=== PATIENT | male | born 1930 | race Caucasian/White ===

== ENCOUNTER → 2016-12-06 | Outpatient (CLI) | payer OTHER ==
[~2016-12-06] VITALS: Ht 177.8 cm; Wt 76.5 kg
[~2016-12-06] MED LIST: ADULT LOW DOSE81 MG PO; ALEVE220 MG PO; ALLERGY RELIEF10 M3 PO; ASPIRIN EC81 M1 PO; ATORVASTATIN CA40 MG PO; BENADRYL25 MG PO; CALCITRATE200 MG PO; CALCIUM CITRAT1 EAC9 PO; CELEBREX 200 M200 M1 PO; CO Q-1010 MG PO; CRANBERRY PO; CRANBERRY500 M1 PO; FISH OIL 1,001000 M1 PO; GLUCOSAMINE S1000 M2 PO; GLUCOSAMINE SU500 MG PO; HYTRIN 5 M5 MG/1 CAP PO; LISINOPRIL20 MG PO; LOPRESSOR50 PO; METAMUCIL283 GM PO; MOBIC15 MG PO; MOBIC7.5 MG PO; MSM1000 M1 PO; MULTIVITAMINS PO; NEURONTIN 300300 M1 PO; PERCOCET 7.5-31 EACH PO; PERCOCET PO; RED YEAST RICE600 MG PO; SIMVASTATIN40 MG PO; VITAMIN D400 UNI1 PO; XANAX 0.5 MG0.5 M1 PO
--- NOTE | ~2016-12-06 | HPC ---
[facility] [place] [address] [address] [place] [address] PAIN MANAGEMENT CONSULTATION Name: HITESH MCCABE Room #: REG ROSANAPineda Wang#: [id number] Admission: 12/06/16 Attend Phys: Arnaldo Spivey DO Discharge: Date of : 32 Report #: [id number] THIS REPORT FOR: //name// CC: Karen Spivey The patient is a very pleasant 86-year-old gentleman, last seen in the pain clinic 07/09/2016. He has failed epidural injections, had fairly significant spinal stenosis with severe right neural foraminal stenosis at L3-L4, canal narrowed to 8.7 mm, with central stenosis at L2-L3 as well. The patient returns to the pain clinic today. He was seen for prolonged visit from [id number], greater than 50% of this 25-minute visit was spent counseling the patient. He did progress to have a decompressive laminectomy 11/14/2016, with Dr. Mciheal Bowers. Unfortunately, from the patient's perspective, it seems that symptoms continued to be problematic. He returns to pain clinic today noting pain is an 8/10 with walking, it is in the left low back, buttock, and anterior thigh, somewhat below the knee. He states pain interferes with function and seems to be getting worse with activity and time. He is now only 3 weeks out from surgery. He is very concerned that he feels he should have been "more functional" at this point. PHYSICAL EXAMINATION: Shows a pleasant 86-year-old gentleman, BMI is 24.2 kg/m2. Vital signs stable as noted in the EMR. Rises from chair using armrest. Gait is actually fairly tandem, though he has subjective pain in the right hip and leg. Objectively, lower extremity strength is 4/5 to hip flexion, lower extremity extension and flexion, dorsiflexion and plantar flexion. Right patellar reflex is absent, it is 1/4 on the left. Achilles reflex is 0-1/4 and symmetric. Straight leg raise is negative. Skin integument is intact. Well healed midline scar in the L3-L5 area. Unfortunately, I do not have any records from the surgery. ASSESSMENT: Symptomatic lumbar radiculopathy status post decompressive laminectomy with ongoing pain, right L3 distribution. RECOMMENDATION: Discussion with the patient today about therapeutic options. Strongly encouraged him to continue titrating up on his gabapentin, currently 1200 mg, Dr. Bowers has recommended to go up to 1800 mg a day, which I agree with. We will continue Percocet for breakthrough pain, he had some 7.5 mg tablets, I will decrease this to a 5/325 tablet, but enable him to take up to 4 tablets a day. Strongly encouraged him to continue stretching and walking daily. We will follow up in another 3 weeks for reevaluation. If pain continues to be problematic at that point, we may consider single epidural injection to help [address] [address] PAIN MANAGEMENT CONSULTATION Name: HITESH MCCABE Room #: REG ODETTE Wang#: [id number] Admission: 12/06/16 Attend Phys: Arnaldo Spivey DO Discharge: Date of : 32 Report #: [id number] with the scar tissue shrinkage and to decrease inflammation in the right L3 nerve root. (Likely L3-L4 transforaminal epidural injection)?). Again, location of the injection will depending on surgical report. If we did not get adequate relief following the procedure, we will consider moving forward with further radiographic evaluation, MRI with and without contrast. The patient was discharged in good and stable condition after a prolonged visit today, greater than 50% of time spent counseling the patient, encourage him to continue with activity, assuring him that there does not appear to be any terribly concerning symptoms, no bowel or bladder continence changes, no specific loss of strength, and no myelopathic symptoms. <ELECTRONICALLY SIGNED> By: Arnaldo Spivey DO 12/07/16 0704 1523 2139 Arnaldo Spivey DO /nt
[2016-12-06 13:25] VITALS: BP 132/69
== END ==
LOC: PAIN 07:10
DX: M54.16 Radiculopathy, lumbar region (principal); M48.06 Spinal stenosis, lumbar region; M96.1 Postlaminectomy syndrome, not elsewhere classified; Z87.891 Personal history of nicotine dependence

== ENCOUNTER → 2016-12-27 | Outpatient (CLI) | payer OTHER ==
[~2016-12-27] VITALS: Ht 177.8 cm; Wt 81.2 kg
[~2016-12-27] MED LIST changes: +NEUROCET PO
--- NOTE | ~2016-12-27 | HPC ---
[facility] [place] [address] [place] [address] PAIN MANAGEMENT CONSULTATION Name: HTIESH MCCABE Room #: REG ODETTE Wang#: [id number] Admission: 12/27/16 Attend Phys: Arnaldo Spivey DO Discharge: Date of : 32 Report #: [id number] THIS REPORT FOR: //name// CC: Karen Spivey The patient is a very pleasant 86-year-old gentleman, prior seen in the pain clinic 12/06/2016. The patient had progressed to have a decompressive laminectomy (at [facility]) 11/14/2016, Dr. Micheal Bowers. Unfortunately, from the patient's perspective this did not seem to help with his symptoms. At last visit 12/06/2016, talked about therapeutic options. Dr. Bowers had started him on gabapentin with a goal of titrating up to 1800 mg a day. I continued him on some Percocet, but weaned down from 7.5 to 5/325, limiting 4 a day. I asked to see him back today. He returns to pain clinic, we had a prolonged visit, he was seen from 13:15-13:45. Greater than 50% of this 30-minute visit was spent counseling the patient. He is frustrated that pain continues to be problematic. He rates his pain 9/10 and states it considerably interferes with ambulatory function. He has pain if he stands or walks. He states in the kitchen, he can only work for 2-3 minutes before pain becomes problematic. He is also complaining of significant lower extremity edema, right greater than left leg. He thinks it is likely secondary to the gabapentin, I tend to concur. Pain primarily right low back, radiating around the iliac crest and gluteus medius into the anterior thigh. It appears to be somewhat of an L2-L3 distribution on the right side. Physical exam shows 86-year-old gentleman, BMI is 25.7 kilograms per meter squared. Blood pressure is modestly elevated 143/99, pulse 84, respirations 16. Rises from the chair using armrest. Gait is modestly antalgic. Lower extremity strength is objectively pretty symmetric, though right hip flexion strength is little diminished. Straight leg raise is negative. Patellar reflexes slightly diminished on the right. Today, we did review opiate consent to treat contract. The patient understands his right to responsibilities. Under this, I have agreed to continue opiate analgesic, though we want to try and lower the dose or convert to a long-acting opiate. Presently we will simply wean gabapentin. He has stopped because he has actually gone from six 300 mg tablets to four 300 mg tablets a day. I suggested that he drop 1 tablet every 2-3 days and he should be able to wean off in about a week. I have taken the liberty of writing for 100 Percocet 5/325 to take not more than 4 a day. I will see him back in 3 weeks for reevaluation. At that time, we may consider addition of a sodium channel membrane stabilizing agent if he feels that the pain got worse when he weaned [address] [address] PAIN MANAGEMENT CONSULTATION Name: HITESH MCCABE Room #: REG ODETTE Wang#: [id number] Admission: 12/27/16 Attend Phys: Arnaldo Spivey DO Discharge: Date of : 32 Report #: [id number] off the gabapentin. We will also evaluate lower extremity swelling at that time. I asked him to bring in his remaining pills in the jar for pill count. We will ensure that he is taking not more than 4 Percocet a day. Discharged in good stable condition after prolonged visit, greater than 25 minutes was spent mostly counseling the patient. <ELECTRONICALLY SIGNED> By: Arnaldo Spivey DO 12/28/16 0837 1541 2320 Arnaldo Spivey DO /nt
[2016-12-27 13:03] VITALS: BP 143/99
== END | disposition home or self-care (01) ==
LOC: PAIN 07:16
DX: R60.0 Localized edema (principal); M54.5 Low back pain

== ENCOUNTER → 2017-01-21 | Outpatient (CLI) | payer OTHER ==
[~2017-01-21] VITALS: Ht 177.8 cm; Wt 77.6 kg
[~2017-01-21] MED LIST changes: +LIDODERM 5%1 PATC1 TRANSDERM
--- NOTE | ~2017-01-21 | HPC ---
[facility] [place] [address] [place] [address] PAIN MANAGEMENT CONSULTATION Name: HITESH MCCABE Room #: REG ODETTE Wang#: [id number] Admission: 01/21/17 Attend Phys: Arnaldo Spivey DO Discharge: Date of : 32 Report #: [id number] THIS REPORT FOR: //name// CC: Karen Spivey DATE OF SERVICE: 01/21/2017 HISTORY OF PRESENT ILLNESS: The patient is an 86-year-old gentleman, prior seen in the pain clinic on 12/27/2016. He had a decompressive laminectomy on 11/14/2016. The patient's subjective feeling is that his pain has only gotten worse and has continually gotten worse since that surgery. Last visit, I tried to wean his Percocet from 7.5 to 5/325 limiting to 3-2 tabs per day. Gabapentin had prior been weaned secondary to significant pretibial edema. Returned to the pain clinic today. We had a prolonged visit from 13:16 to approximately 13:45. Greater than 50% of this 25+ minute visit was spent counseling the patient. His pain is primarily right gluteal anterior thigh to the perla. He notes a burning numb sensation. He takes Celebrex 100 mg a day, Percocet 5/325 four a day, gabapentin 300 mg b.i.d. with pain that he rates as 7-8 on a 0-10 visual analog scale, exacerbated with activity including walking, standing, gets some relief with rest. PHYSICAL EXAMINATION: Shows an 86-year-old gentleman, BMI is 24.5 kilograms per meter squared. Vital signs are stable as noted on the EMR. Rises from chair using armrest, modestly antalgic gait, slight decreased right hip flexion strength and lower extremity extension strength. Patellar reflex is modestly diminished on the right. Achilles reflexes are preserved. DIAGNOSTIC STUDIES: There are no recent diagnostic studies, prior MRI from May 2016 predated his surgery. Discussion with the patient today about the therapeutic options. RECOMMENDATIONS: 1. We will order MRI with and without contrast. 2. If they are surgically correctable pathology, we will refer back to Dr. Micheal Bowers; if not, we will consider a spinal cord stimulator. 3. We elected to increase Percocet transiently from 5 to 7.5/325, limit one tablet 4 times a day. Follow up in 1 month for reevaluation. Incidentally, we may also consider adding a sodium channel membrane stabilizing agent (again, the calcium channel membrane stabilizing agent gabapentin higher dose unfortunately caused significant lower extremity edema). The patient was discharged in good and stable condition. MRI with and without [address] [address] PAIN MANAGEMENT CONSULTATION Name: HITESH MCCABE Room #: REG ODETTE Wang#: [id number] Admission: 01/21/17 Attend Phys: Arnaldo Spivey DO Discharge: Date of : 32 Report #: [id number] contrast was ordered. We will follow up after diagnostic study for consideration for further interventional therapy. <ELECTRONICALLY SIGNED> By: Arnaldo Spivey DO 01/23/17 0859 1539 0129 Arnaldo Spivey DO /nt
[2017-01-21 13:12] VITALS: BP 142/71
== END | disposition home or self-care (01) ==
LOC: PAIN 06:11
DX: M79.651 Pain in right thigh (principal)

== ENCOUNTER → 2017-01-31 | Outpatient (CLI) | payer OTHER ==
[~2017-01-31] VITALS: Ht 177.8 cm; Wt 77.1 kg
--- NOTE | ~2017-01-31 | HPC ---
[facility] [place] [address] PAIN MANAGEMENT CONSULTATION Name: HITESH MCCABE Room #: REG ROSANAPineda Wang#: [id number] Admission: 01/31/17 Attend Phys: Arnaldo Spivey DO Discharge: Date of : 32 Report #: [id number] THIS REPORT FOR: //name// CC: Karen Spivey HISTORY OF PRESENT ILLNESS: The patient is an 86-year-old gentleman, being treated with symptomatic lumbar radiculopathy, status post decompressive laminectomy, last seen in the pain clinic 01/21/2017. Ongoing radicular symptoms status post with back surgery, I ultimately ordered an MRI with and without contrast. This was accomplished on 01/23/2017. The patient returns to pain clinic today. We had a prolonged visit reviewing the diagnostic study. He has ongoing pain in right lateral leg. Fortunately, no weakness is noted. Pain is in pretty much of an L4 pattern. We reviewed the MRI findings which notes 5 mm anterolisthesis at L4 on L5 with moderate sized disk protrusion here. The patient had undergone interval L3-L4 laminectomies, when compared to a pre-surgery MRI. The size of the L4-L5 herniation had increased, though the canal itself was quite generous, they note the size of the canal has doubled secondary to the decompression, but degenerative facet hypertrophy and a new right L4-L5 disk herniation is compromising the right neural foramen. This does impinge the exiting nerve root at this L4-L5 canal. We discussed this at length today along with therapeutic options. The patient has an appointment to see Dr. David Whalen, a week from tomorrow. I will see him back after that. If Dr. Whalen suggest foraminotomy or further surgery, the patient may consider moving forward. If, however, he state surgery is either not indicated or will be fairly extensive, we again talked at length about a spinal cord stimulator as possible therapeutic option to help mitigate the pain symptoms. The patient was discharged in good and stable condition. I will see him after his consultation with Dr. Whalen. We will continue him on his baseline narcotic, currently taking Percocet 7.5/325 up to four a day. He will require prescription renewal at our next visit. <ELECTRONICALLY SIGNED> By: Arnaldo Spivey DO 02/04/17 0856 1542 52 Arnaldo Spivey DO /nt
[2017-01-31 14:04] VITALS: BP 144/75
== END | disposition home or self-care (01) ==
LOC: PAIN 06:47
DX: M54.16 Radiculopathy, lumbar region (principal); Z98.890 Other specified postprocedural states; M43.16 Spondylolisthesis, lumbar region; Z87.891 Personal history of nicotine dependence

== ENCOUNTER → 2017-02-11 | Outpatient (CLI) | payer OTHER ==
[~2017-02-11] VITALS: Ht 177.8 cm; Wt 78.6 kg
--- NOTE | ~2017-02-11 | HPC ---
[facility] [place] [address] [place] [address] PAIN MANAGEMENT CONSULTATION Name: HITESH MCCABE Room #: REG ODETTE Wang#: [id number] Admission: 02/11/17 Attend Phys: Arnaldo Spivey DO Discharge: Date of : 32 Report #: [id number] THIS REPORT FOR: //name// CC: Karen Spivey DATE OF SERVICE: 02/11/2017 HISTORY OF PRESENT ILLNESS: The patient is an 86-year-old gentleman being treated for symptomatic lumbar radiculopathy, status post decompressive laminectomy, neuropathic pain, primarily right leg with ongoing L4 radicular pain pattern. I had obtained a post-surgical image 01/23/2017, MRI of the spine with and without contrast. Does show the L4-L5 interval laminectomy with significant reduction of central stenosis, but unfortunately there remained some impingement on the right L4 nerve root. The patient did see Dr. David Bowers regarding further surgery. While it would be possible to decompress the foramen here, the impression that I got communicating with Dr. Bowers is that the surgery will be fairly extensive and the patient may actually be a better candidate for spinal cord stimulator. I had briefly discussed with the patient in the past. He was seen today for a prolonged visit, seen from 14:25-14:50 in the company of his . Again, he notes pain is in the right lateral side, which significantly impacts function; however, he does not have weakness, saddle anesthesia or bowel or bladder continence changes. Today, we discussed at length mechanism of action or spinal cord stimulator stimulating the posterior columns. We talked about expectations for improved functional status. This is not advised to make "pain free." We talked about maintenance and possibility that some of the stimulators may not be MRI compatible. He may be a good candidate for [place] scientific stimulator, high frequency stimulation without significant paresthesia and possible MRI compatible along with advantage of not requiring quite as frequent battery charging as the high frequency nerve stimulator. The patient was discharged in good and stable condition with contact information for psychologist for psychological evaluation as required by his third libertarian payer. We will plan on moving forward earliest possible date with spinal cord stimulator with a [employer] device. <ELECTRONICALLY SIGNED> By: Arnaldo Spivey DO 02/15/17 1606 1555 2150 Arnaldo Spivey DO /nt
[2017-02-11 14:21] VITALS: BP 154/86
== END | disposition home or self-care (01) ==
LOC: PAIN 06:57
DX: M54.16 Radiculopathy, lumbar region (principal); Z98.890 Other specified postprocedural states; Z87.891 Personal history of nicotine dependence; Z79.82 Long term (current) use of aspirin; Z79.899 Other long term (current) drug therapy

== ENCOUNTER → 2017-03-15 | Outpatient (CLI) | payer OTHER ==
[~2017-03-15] VITALS: Ht 177.8 cm; Wt 78.9 kg
--- NOTE | ~2017-03-15 | HPC ---
[facility] [place] [place] [address] PAIN MANAGEMENT CONSULTATION Name: HITESH MCCABE Room #: REG Pineda Wang#: [id number] Admission: 03/15/17 Attend Phys: Arnaldo Spivey DO Discharge: Date of : 32 Report #: [id number] THIS REPORT FOR: //name// CC: Karen Spivey The patient is a very pleasant 86-year-old gentleman being treated for symptomatic lumbar radiculopathy, low back, right leg pain status post lumbar decompressive laminectomy less than a year ago with ongoing pain that has failed conservative therapy. The patient wished to proceed with spinal cord stimulator trial. We had discussed this at length. Presents to the pain clinic today. We again reviewed risks of infection, trauma, spinal cord damage and paralysis as well as infection and bleeding. The patient wished to proceed. IV access was established, the patient was given 1 g of Ancef, taken to the fluoroscopy suite and placed in the prone position with appropriate abdominal bolstering. Wide surgical prep and drape was accomplished. Skin wheal with lidocaine was raised lateral to the L1 vertebral body. A 14-gauge epidural Tuohy needle was placed to enter the posterior spinous process at T11-T12. Stylet was removed and a saline filled glass syringe was connected. With continuous plunger pressure and biplanar fluoroscopy, the needle was gradually advanced with good loss of resistance into the epidural space. Negative cerebrospinal fluid or blood was noted. A [employer] 16 contact lead was placed to the top of T7. Attention was then directed at the left paramedian approach and the procedure was repeated. I was unable to get the lead easily passed about T12 and we aborted this attempt. I then made a second skin wheal of 1 section lower entering the epidural space at T12-L1. A second lead was then advanced from the T12-L1 approach, again with similar continuous plunger pressure on the saline filled glass syringe and biplanar fluoroscopy, again with good loss of resistance and no cerebrospinal fluid or blood noted on aspiration. This lead was easily advanced immediately to the right of midline, again to mid T7. The placement covered all of T7, T8, and T9. Under continuous fluoroscopy, the stylet and needles were removed. The tips remained intact. The leads were secured using mastic and Steri-Strips. Wide bolster dressing was applied. The patient was allowed to ambulate to recovery room, monitored for an appropriate period of time. The patient was discharged in good and stable condition. Contact information for the [employer] rep (Radha, [phone]) was given. He will contact them with any questions regarding the stimulation. I did give him contact information for the pain physician front office specialist, which will be Joce Spivey this weekend and myself next week, should he have any concerns with increased pain, weakness, fever, chills, drainage, etc. [address] [address] PAIN MANAGEMENT CONSULTATION Name: HITESH MCCABE Room #: REG ODETTE Wang#: [id number] Admission: 03/15/17 Attend Phys: Arnaldo Spivey DO Discharge: Date of : 32 Report #: [id number] We will plan on seeing the patient next week for lead evaluation and removal. Discharged in good and stable condition. <ELECTRONICALLY SIGNED> By: Arnaldo Spivey DO 03/18/17 1427 0816 0928 Arnaldo Spivey DO /nt
[2017-03-15 07:10] VITALS: BP 142/83
== END | disposition home or self-care (01) ==
LOC: PAIN 06:46
DX: M54.16 Radiculopathy, lumbar region (principal); Z98.890 Other specified postprocedural states; Z79.82 Long term (current) use of aspirin; Z79.899 Other long term (current) drug therapy; Z87.891 Personal history of nicotine dependence

== ENCOUNTER → 2017-03-21 | Outpatient (CLI) | payer OTHER ==
[~2017-03-21] VITALS: Ht 177.8 cm; Wt 78.1 kg
--- NOTE | ~2017-03-21 | HPC ---
[facility] [place] [address] [address] PAIN MANAGEMENT CONSULTATION Name: HITESH MCCABE Room #: REG [facility] Kathleen#: [id number] Admission: 03/21/17 Attend Phys: Arnaldo Spivey DO Discharge: Date of : 32 Report #: [id number] THIS REPORT FOR: //name// CC: Karen Spivey The patient is an 86-year-old gentleman ongoing lumbar radicular pain status post decompressive laminectomy requiring complex medication management. He was seen 03/15/2017, I have placed 2 spinal cord stimulator leads for trial. The patient returns to pain clinic today. He was somewhat equivocal about efficacy. While talking to the patient; however, he states he is very sedentary secondary to pain than the past week. He has been unable to walk a great deal. States his functional ability has significantly more than doubled. He states he still has pain, rates anywhere from 4-7 on a VAS. Pain is primarily low back, right leg. The patient does use Percocet 7.5/325 up to 4 a day for pain. He has not had any problems with daytime somnolence, mental acuity changes, or constipation. We reviewed the fact that opiate medications are being used to provide analgesia adequate to support activities of daily living, not attempting to achieve a specific pain score on the 0-10 Visual Analog Scale. The current opiate medications are providing sufficient analgesia to allow the patient to participate in activities of daily living. The patient is not exhibiting any aberrant behavior suggestive of drug diversion. The patient is not having any adverse reactions to medications. The patient is not suffering from daytime somnolence or mental acuity changes. The patient is managing opiate-induced constipation with appropriate kjzx-foq-qmfxszy agents and dietary considerations. The patient was counseled on concern for caution with operating a motor vehicle while using opiate medications. A physical exam was performed and the patient's functional status was evaluated. All patients with back pain were advised against the bed rest greater than 4 days and were advised to return to normal activities. Pain score assessment was noted and the treatment plan was reviewed with the patient. All current medications, both prescribed and OTC were reviewed and reconciled on the electronic medical record. Tobacco screening was accomplished and smoking cessation was advised when indicated. BMI was noted and diet/exercise modification was recommended for all patients following outside normal parameters. I reviewed with the patient today their responsibilities to safeguard prescription medications, reviewed their responsibility to utilize medications only as prescribed by the physician. They are to seek and receive pain medications only from 1 physician group ( [facility]). They are to use 1 pharmacy and keep the clinic informed if they change pharmacies. Their [address] [address] PAIN MANAGEMENT CONSULTATION Name: HITESH MCCABE Room #: REG ODETTE Wang#: [id number] Admission: 03/21/17 Attend Phys: Arnaldo Spivey DO Discharge: Date of : 32 Report #: [id number] responsibilities include making followup visits in a timely fashion and to avoid abrupt discontinuation of medication usage. Their responsibilities further include bringing their medications (bottles from the pharmacy with residual pills) to the visit for possible confirmation of pill counts and the patient understands it is their responsibility to submit to random drug screens to ensure both that the medications prescribed are present, and that no other controlled substances are present. All prescriptions provided today were generated electronically. The patient was placed in prone position. The sterile dressings were removed, the leads were removed. Tips were intact. The insertion site looks good. Area was cleansed and Band-Aids were applied. ASSESSMENT: Symptomatic lumbar radiculopathy status post decompressive laminectomy requiring complex medication. RECOMMENDATIONS: 1. Renew Percocet 7.5/325 for opiate consent to treat contract. Follow up in 4 weeks for reevaluation. 2. We talked about spinal cord stimulator device and moving forward with implantation. The patient would like to go home for a few days and see how he feels without benefit of the device. I suspect he will want to move forward with implantation, but I told him we will only refer him for implantation surgery if he feels that the device provided dramatic improvement in his functional status. The patient did have Dr. Vinicio Weaver to perform his back surgery at [facility]. We will refer him back to Dr. Weaver for consideration for implantation of this [employer] spinal cord stimulator should he elect to do some. Discharged in good and stable condition. <ELECTRONICALLY SIGNED> By: Arnaldo Spivey DO 03/25/17 0746 1535 1610 Arnaldo Spivey DO /nt
[2017-03-21 11:33] VITALS: BP 156/83
== END | disposition home or self-care (01) ==
LOC: PAIN 07:19
DX: M54.16 Radiculopathy, lumbar region (principal); Z98.890 Other specified postprocedural states; Z79.899 Other long term (current) drug therapy; Z87.891 Personal history of nicotine dependence

== ENCOUNTER → 2017-05-02 | Outpatient (CLI) | payer OTHER ==
[~2017-05-02] VITALS: Ht 177.8 cm; Wt 79.8 kg
--- NOTE | ~2017-05-02 | HPC ---
[facility] [place] [address] PAIN MANAGEMENT CONSULTATION Name: HITESH MCCABE Room #: REG ODETTE Wang#: [id number] Admission: 05/02/17 Attend Phys: Arnaldo Spivey DO Discharge: Date of : 32 Report #: [id number] THIS REPORT FOR: //name// CC: Karen Spivey The patient is an 86-year-old gentleman well known to pain clinic, being treated for lumbar radiculopathy, status post decompressive laminectomy. The patient was last seen in pain clinic on 03/21/2017. I had ultimately progressed to a spinal cord stimulator trial, 03/15/2017 through 03/21/2017. The patient was equivocal about the efficacy, though he did note that his functional status was "more than doubled." He was able to do more activity with the physical therapist. He did, however, acknowledged that he had a very sedentary life and that he did not change that during the trial to any significant effect. Today, he returns to the pain clinic. He does have an appointment with Dr. Micheal Bowers over the next week to discuss implantation of the spinal cord stimulator. I had a prolonged visit with the patient today from 13:26 to 13:55. Greater than 50% of this time was spent reviewing his medical issues and discussing therapeutic options and counseling the patient and his . He is currently taking gabapentin 300 mg 4 tablets a day. He developed some peripheral edema when he was taking 6 tablets a day. Back with 4 a day, the edema seems a little bit better. He notes he has pain in the right buttock and leg. States he feels that the left leg pain is ongoing despite having prior surgery. I think he has an expectation of being "pain-free." I stressed to him that, that simply will not be possible. We are simply trying to encourage his functional status. He notes that getting out of the chair most recently, he is developing some pain in his right elbow as he push offs from the armrest. PHYSICAL EXAMINATION: GENERAL: Shows 86-year-old gentleman, BMI is 25.3 kilograms per meter squared. VITAL SIGNS: Stable. EXTREMITIES: Right arm is essentially unremarkable. Full range of motion in the shoulder, elbow and wrist. He does have a little pain with resistance to wrist flexion. No pain with resistance to wrist extension. Palpation, however, over the medial epicondyle does not reproduce pain. He appears to have some pain primarily from the elbow joint proper. This appears to be actually fairly nominal overall as I cannot reproduce pain in our visit today. He complains of "stiffness right hip." 1passive rotation of both hips is unremarkable. Lower extremity strength is symmetric and 4-5 to all muscle groups tested. Straight leg raise is negative. Patellar reflexes are 0-1/4 and symmetric. DIAGNOSTIC STUDIES: Most recent MRI of the lumbar spine from 01/23/2017, three months after his L3 and L4 laminectomies notes a 5-mm anterolisthesis of L4 on [address] [address] PAIN MANAGEMENT CONSULTATION Name: MCCABE,HITESH BENITA Room #: REG CLI Kathleen#: [id number] Admission: 05/02/17 Attend Phys: Arnaldo Spivey, DO Discharge: Date of : 32 Report #: [id number] L5 with a moderate sized disk protrusion with degenerative hypertrophic facet changes produced some impingement on the neural foramen, right greater than left. There is some impingement on the exiting nerve roots at L4-L5; however, neurosurgeon has suggested that he does not require surgical treatment. The patient's MRI findings do suggest some compromising L4 nerve root, however, strength being symmetric, straight leg raise being negative and preserved patellar reflexes somewhat argue against further surgical decompression. Subjective pain with improved function following spinal cord stimulator may argue for consideration for spinal cord stimulator implant. Fortunately, he will discuss all this with Dr. Bowers at next visit. Today, I did discuss with the patient at length that we want to ultimately wean off of opiates if able. He is desirous of increasing the gabapentin back to 6 a day. I suggested he start by increasing from 4 a day to 5 a day and watch carefully for any signs of lower extremity pitting edema. If he does well for about 7-10 days, increase to 6 today. We did suggest using compressive stockings during the day. We will continue Percocet 7.5/325 up to 3 a day, suggest he try a weaning despite by getting tablet in half either first thing in the morning or in the afternoon, hopefully we can wean down to 2 or 2-1/2 tablets today. Follow up in 2 months for reevaluation. We will try and wean the Percocet 5/325 if able at that time. Discharged in good and stable condition after prolonged visit, spent answering many, many questions. By: [id number] Arnaldo Spivey DO /nt
[2017-05-02 13:10] VITALS: BP 130/74
== END ==
LOC: PAIN 06:18
DX: Z51.81 Encounter for therapeutic drug level monitoring (principal); M54.16 Radiculopathy, lumbar region; Z98.890 Other specified postprocedural states; Z87.891 Personal history of nicotine dependence; Z79.82 Long term (current) use of aspirin; Z79.899 Other long term (current) drug therapy

== ENCOUNTER → 2017-05-24 | Outpatient (CLI) | payer OTHER ==
[~2017-05-24] VITALS: Ht 177.8 cm; Wt 80.9 kg
[~2017-05-24] MED LIST changes: +VOLTAREN GEL 1100 G2 TOP
--- NOTE | ~2017-05-24 | HPC ---
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 The patient returns to pain clinic today in the company of his . He was seen for prolonged visit from 8538-9529 hours. Greater than 50% of this 25+ minute visit was spent counseling the patient. The patient has appointment to see Dr. Micheal Bowers, the 19 of June and they are ostensibly planning on moving forward with spinal cord stimulator implant. He was told that any further back surgery would require instrumentation. He is complaining of pain, primarily right hip, buttock and leg, anterior lateral thigh to the medial aspect of the lower leg. No foot pain. He notes lumbar flexion exacerbates pain on the right lateral leg. He states he can walk for 10-15 minutes and then has neurogenic claudication symptoms. He was requesting a back brace today. States he feels that he has continued to decline despite physical therapy, epidural injections, surgery and medications. He is quite frustrated. Again, we spent a prolonged visit today. He incidentally notes pain in the right elbow, exacerbated with pushing off to stand up. Does not have palpable tenderness over the medial lateral epicondyle, pain appears to be in the posterior medial aspect of the olecranon fossa. It appears to be likely a component of DJD. The patient's primary pain concern again back, right hip, lateral leg to the foot, exacerbated with standing and walking greater than 10-15 minutes, exacerbated with lumbar flexion. He rates it 8 on a VAS score. He has continued to take Percocet 7.5/325 up to 4 a day, gabapentin 300 mg b.i.d. for pain with nominal efficacy. Physical exam shows 86-year-old gentleman, BMI is 25.6 kilograms per meter squared. Blood pressure 132/80, pulse 80, respirations 16. He is alert and oriented to person, place and time, judged to be a reasonable historian. Rises from the chair using the hand rest, but gait is generally antalgic. Lower extremity strength is preserved. Patellar reflex is diminished, 0 to 1/4 on the right, 1+ to 2/4 on the left. Achilles reflexes are symmetric. Straight leg raise is really nominal at this point. He does have some diffuse tenderness across the low back. No discrete trigger points are noted. Flexion is good to [address] [address] PAIN MANAGEMENT CONSULTATION Name: HITESH MCCABE Room #: REG ODETTE Wang#: [id number] Admission: 05/24/17 Attend Phys: Arnaldo Spivey DO Discharge: Date of : 32 Report #: [id number] about 80 degrees. Long discussion with the patient today about therapeutic options. I told him that I do think a back brace in his better interest, I pointed out that with a back brace typically muscles tend to relax and core stabilizing muscles get weak. I strongly recommended physical therapy. The patient was not interested in this at all, he states he has been to physical therapy in the past and Dr. Bowers had told him he did not think that he would benefit from physical therapy. When I talked to the patient further, it appears that he never really continued with exercises at home from physical therapy in the past. Again, states he walks 10 or 15 minutes and pain becomes problematic. I encouraged him to reconsider physical therapy and in fact initiated a consult for physical therapy, specifically for therapeutic exercises, requesting the therapist guide the patient on home exercise regimen for increasing back muscle stability. Suggest the patient start walking with a target of walking up to 30 minutes at a time. Again, right elbow exam as noted in the chief complaint. ASSESSMENT: 1. Right elbow degenerative joint disease. Recommend Voltaren gel topically. 2. Lumbar radiculopathy, right L4 distribution, status post decompressive laminectomy, axial back pain. RECOMMENDATIONS: 1. Physical therapy as noted above. 2. No medication changes. 3. Follow up with Dr. Bowers, if they decide to move forward with spinal cord stimulator, I think that this may be efficacious for his neurogenic claudication component. I think physical therapy will help strengthen his back and help stabilization there. I will see the patient back in 4 weeks for medication management. Discharged in good and stable condition after prolonged visit spent counseling the patient and answering all questions from both the patient and his . By: [id number] Arnaldo Spivey, /nt
[2017-05-24 12:30] VITALS: BP 132/80
== END | disposition home or self-care (01) ==
LOC: PAIN 07:27
DX: M54.16 Radiculopathy, lumbar region (principal); Z98.890 Other specified postprocedural states; M19.021 Primary osteoarthritis, right elbow; Z87.891 Personal history of nicotine dependence

== ENCOUNTER → 2017-08-02 | Outpatient (CLI) | payer OTHER ==
[~2017-08-02] VITALS: Ht 177.8 cm; Wt 83.0 kg
[~2017-08-02] MED LIST changes: +MEDROLDOSEPACK PO
--- NOTE | ~2017-08-02 | HPC ---
[facility] [place] [place] [address] PAIN MANAGEMENT CONSULTATION Name: MCCABE,HITESH BENITA Room #: REG ROSANAPineda Wang#: [id number] Admission: 08/02/17 Attend Phys: Arnaldo Spivey DO Discharge: Date of : 32 Report #: [id number] THIS REPORT FOR: //name// CC: Karen Spivey HISTORY OF PRESENT ILLNESS: The patient is an 86-year-old gentleman being treated for lumbar radiculopathy status post decompressive laminectomy, axial back pain requiring high risk complex medication management. At last visit he was having some ongoing right arm pain. I tried a Medrol Dosepak and referred the patient to [facility]. He did see Dr. Vasquez. Apparently, he aspirated 5 mL of serosanguineous fluid off his elbow. He has an MRI scheduled for evaluation of the right elbow. We talked today at length about his axial back pain. We had performed a spinal cord stimulator trial on 03/21/2017. The patient had been equivocal at best about the efficacy. He thought in retrospect that it was helpful and he was planning on moving forward with implantation of the spinal cord stimulator device in August. Today, he tells me his back pain is actually reasonably well controlled with Percocet b.i.d. (7.5/325). Rates his pain 1 on a VAS at present. He notes that he is participating in most activities, in fact is much more functional presently. PHYSICAL EXAMINATION: Shows 86-year-old gentleman, BMI is 26.3 kilograms per meter squared. He does have some ballotable edema again in the right elbow, has a modestly antalgic gait, diffuse tenderness across the low back. Lower extremity strength is generally symmetric. We reviewed the fact that opiate medications are being used to provide analgesia adequate to support activities of daily living, not attempting to achieve a specific pain score on the 0-10 Visual Analog Scale. The current opiate medications are providing sufficient analgesia to allow the patient to participate in activities of daily living. The patient is not exhibiting any aberrant behavior suggestive of drug diversion. The patient is not having any adverse reactions to medications. The patient is not suffering from daytime somnolence or mental acuity changes. The patient is managing opiate-induced constipation with appropriate kslm-dmm-zsjbtpe agents and dietary considerations. The patient was counseled on concern for caution with operating a motor vehicle while using opiate medications. A physical exam was performed and the patient's functional status was evaluated. All patients with back pain were advised against the bed rest greater than 4 days and were advised to return to normal activities. Pain score assessment was noted and the treatment plan was reviewed with the patient. All current medications, both prescribed and OTC [place] [address] PAIN MANAGEMENT CONSULTATION Name: HITESH MCCABE BENITA Room #: REG CLPineda Wang#: [id number] Admission: 08/02/17 Attend Phys: Arnaldo Spivey DO Discharge: Date of : 32 Report #: [id number] electronic medical record. Tobacco screening was accomplished and smoking cessation was advised when indicated. BMI was noted and diet/exercise modification was recommended for all patients following outside normal parameters. I reviewed with the patient today their responsibilities to safeguard prescription medications, reviewed their responsibility to utilize medications only as prescribed by the physician. They are to seek and receive pain medications only from 1 physician group ( [facility]). They are to use 1 pharmacy and keep the clinic informed if they change pharmacies. Their responsibilities include making followup visits in a timely fashion and to avoid abrupt discontinuation of medication usage. Their responsibilities further include bringing their medications (bottles from the pharmacy with residual pills) to the visit for possible confirmation of pill counts and the patient understands it is their responsibility to submit to random drug screens to ensure both that the medications prescribed are present, and that no other controlled substances are present. All prescriptions provided today were generated electronically. ASSESSMENT: 1. Lumbar radiculopathy status post decompressive laminectomy, axial back pain, 2. right arm pain with joint edema/ballotable fluid, 3. requiring high risk complex medication management. RECOMMENDATIONS: I had a prolonged visit with the patient and Ms. Mccabe today, he was seen from 12:54-13:20, greater than 50% of the 25-minute visit was spent counseling the patient. Ultimately, given the patient's functional status and the equivocal effect of the prior spinal cord stimulator trial, I have encouraged him to postpone the planned implantation. We will simply continue with Percocet 7.5/325 b.i.d. to t.i.d. for pain. Today, I have also agreed to provide the patient with a prescription for Xanax 0.5 mg 2 tablets, 1 to be taken the morning of his right elbow MRI and he can take the second one 30 minutes prior if anxiety and claustrophobia are problematic. PROCEDURE: Arthrocentesis right elbow. PROCEDURE NOTE: After written informed consent was obtained, the patient was placed in seated position with his right arm resting on the bed. Wide surgical prep and drape was accomplished with ChloraPrep. Skin wheal with Xylocaine was [facility] [address] [place] [address] PAIN MANAGEMENT CONSULTATION Name: HITESH MCCABE Room #: [facility]#: [id number] Admission: 08/02/17 Attend Phys: Arnaldo Spivey DO Discharge: Date of : 32 Report #: [id number] raised. A 20-gauge Angiocath was inserted into the ballotable fluid in the right elbow from a posterior approach. Approximately 5 mL of serosanguineous solution was withdrawn. Angiocath was removed. The area was cleansed, Band-Aids applied. The patient was told to use ice the area today. Strongly encouraged to follow up with the MRI and [place] with Dr. Vasquez at [facility]. Discharged in good and stable condition after prolonged visit. <ELECTRONICALLY SIGNED> By: Arnaldo Spivey DO 08/07/17 [id number] Arnaldo Spivey DO /nt
[2017-08-02 12:49] VITALS: BP 120/70
== END ==
LOC: PAIN 07:02
DX: M54.16 Radiculopathy, lumbar region (principal); Z79.899 Other long term (current) drug therapy; R60.0 Localized edema